=== PATIENT | female | born 2000 | race Two or more races ===

== ENCOUNTER 2023-09-01 07:33 | Emergency (ER) | payer MEDICAID ==
[~2023-09-01] VITALS: Ht 157.5 cm; Wt 50.3 kg
[2023-09-01 07:40] VITALS: BP 94/61; TEMP 98.2
[2023-09-01] MEDS ORDERED: CEPH-570 PO (08:46)
[2023-09-01] MEDS ORDERED: MUPI15CR TP (08:46)
[2023-09-01] MEDS ORDERED: IBUP-1955 PO (08:46)
[2023-09-01] MEDS ORDERED: SULF1TAB48 PO (08:46)
[2023-09-01 08:49] VITALS: O2SAT 97
== END 2023-09-01 08:50 | disposition home or self-care (01) ==
LOC: ER 07:38
DX: L03.311 Cellulitis of abdominal wall (principal); L02.211 Cutaneous abscess of abdominal wall; F41.9 Anxiety disorder, unspecified; Z60.2 Problems related to living alone

== ENCOUNTER 2024-01-23 09:59 | Emergency (ER) | payer MEDICAID, OTHER ==
[~2024-01-23] VITALS: Ht 157.5 cm; Wt 63.5 kg
[~2024-01-23 09:59] MED LIST: CEPH-570 PO; IBUP-1955 PO; MUPI15CR TP; SULF1TAB48 PO
[2024-01-23] MEDS ORDERED: ONDANSETRON HCL/PF 4 MG/2 ML VIAL ONE (10:57)
[2024-01-23] MEDS ORDERED: KETOROLAC TROMETHAMINE 15 MG/ML VIAL ONE (10:57)
[2024-01-23] MEDS: IV NS 0.9% 1,000 ML BAG IV ONE (11:00)
[2024-01-23] MEDS: ONDANSETRON HCL/PF 4 MG/2 ML VIAL IVP ONE (11:05)
[2024-01-23 11:15] LABS: BASOPHILS % (AUTO) 0.3 % (0.0-2.0); EOSINOPHILS % (AUTO) 0.7 % (0.0-6.0); HEMATOCRIT 39 % (33-45); HEMOGLOBIN 13.2 g/dL (11.5-14.8); LYMPHOCYTES # (AUTO) 0.8 K/uL (0.8-4.8); LYMPHOCYTES % (AUTO) 15.4 % (20.0-44.0); MEAN CORPUSCULAR HEMOGLOBIN 30 PG (26.0-33.0); MEAN CORPUSCULAR HGB CONC 34 g/dl (31.0-36.0); MEAN CORPUSCULAR VOLUME 89 fL (82-100); MONOCYTES # (AUTO) 0.5 K/uL (0.1-1.30); MONOCYTES % (AUTO) 9.4 % (2.0-12.0); NEUTROPHILS % (AUTO) 74.2 % (43.0-81.0); PLATELET COUNT (AUTO) 259 K/uL (150-450); RED BLOOD CELL COUNT(AUTO) 4.43 MIL/uL (4.0-5.2); RED CELL DISTRIBUTION WIDTH 13.5 % (11.5-15.0); WHITE BLOOD COUNT (AUTO) 5.4 K/uL (4.3-11.0)
[2024-01-23 11:15] LABS: APPEARANCE,URINE CLEAR (CLEAR); BILIRUBIN,URINE NEGATIVE (NEGATIVE); BLOOD, URINE NEGATIVE Ery/uL (NEGATIVE); COLOR,URINE YELLOW (YELLOW); KETONES,URINE NEGATIVE (NEGATIVE); LEUKOCYTE ESTERASE ,URINE NEGATIVE (NEGATIVE); NITRITE, URINE NEGATIVE (NEGATIVE); PREGNANCY TEST URINE QUAL NEGATIVE (NEGATIVE); PROTEIN,URINE NEGATIVE (NEGATIVE); UGLUCOSE NEGATIVE (NEGATIVE); UROBILINOGEN,URINE 0.2 EU/dL (0.2)
[2024-01-23] MEDS: KETOROLAC TROMETHAMINE 15 MG/ML VIAL IV ONE (11:25)
[2024-01-23 11:38] LABS: CALCIUM, SERUM 8.7 mg/dL (8.5-10.1); CREATININE 0.5 mg/dL (0.6-1.3); POTASSIUM 3.8 mmol/L (3.5-5.1)
[2024-01-23 11:41] LABS: ALBUMIN 3.9 g/dL (3.4-5.0); BILIRUBIN,DIRECT 0.1 mg/dL (0.0-0.2); BILIRUBIN,TOTAL 0.4 mg/dL (0.2-1.0); TOTAL PROTEIN, SERUM 7.6 g/dL (6.4-8.2)
[2024-01-23] MEDS ORDERED: DICY10CA37 PO (12:08)
[2024-01-23] MEDS ORDERED: ONDA4TAB11 PO (12:08)
[2024-01-23 12:16] VITALS: BP 110/61; TEMP 98.7; O2SAT 100
== END 2024-01-23 12:17 | disposition home or self-care (01) ==
LOC: ER 09:59
DX: G89.29 Other chronic pain (principal); R10.84 Generalized abdominal pain; R11.0 Nausea; R14.0 Abdominal distension (gaseous); F41.9 Anxiety disorder, unspecified; Z60.2 Problems related to living alone
CPT/HCPCS: 99284; 96374; 96361; 96375; 85025; 80048; 83690; 80076; 84703; 81003; 36415; J2405; J7030; J1885